=== PATIENT | female | born 1960 | race African-American/Black ===

== ENCOUNTER 2018-02-23 22:04 | Emergency (ER) | payer MEDICAID, OTHER ==
[~2018-02-23] VITALS: Ht 162.6 cm; Wt 67.0 kg
[~2018-02-23 22:04] MED LIST: AMLO10TA4 PO; AMLO10TA80 PO; FURO20TA4 PO
[2018-02-23] MEDS ORDERED: KETOROLAC 60MG/2ML VIAL IM ONE (23:45)
[2018-02-23] MEDS ORDERED: LIDOCAINE 5% PATCH TOP SCH (23:45)
[2018-02-24 00:30] VITALS: BP 144/86
== END 2018-02-24 00:55 | disposition home or self-care (01) ==
LOC: ER 22:04
DX: M62.838 Other muscle spasm (principal); I10 Essential (primary) hypertension; F17.200 Nicotine dependence, unspecified, uncomplicated; Z88.8 Allergy status to other drugs, medicaments and biological substances
CPT/HCPCS: 93005; 99283

== ENCOUNTER 2024-08-06 13:43 | Emergency (ER) | payer MEDICAID, OTHER ==
[~2024-08-06] VITALS: Ht 162.6 cm; Wt 68.0 kg
[2024-08-06 13:47] VITALS: BP 203/102; TEMP 98.8; O2SAT 100
[2024-08-06 14:02] VITALS: PULSE 103; RESP 18; O2SAT 97
[2024-08-06 15:48] LABS: BASOPHILS % 0.4 % (0.0-2.0); EOSINOPHILS % 0.5 % (0.0-5.0); HEMATOCRIT. 41.2 % (36.0-48.0); HEMOGLOBIN. 13.9 g/dL (12.0-16.0); LYMPHOCYTES % 19.6 % (20.0-50.0); MEAN CORPUSCULAR HGB CONC 33.7 g/dL (31.0-37.0); MEAN CORPUSCULAR VOLUME 88.9 fL (81.0-99.0); MEAN PLATELET VOLUME 7.8 fl (7.4-10.4); MONOCYTES % 4.6 % (2.0-8.0); NEUTROPHILS % 74.9 % (40.0-76.0); PLATELET 397 x1000/uL (130-400); RED BLOOD CELL COUNT 4.64 mill/uL (4.2-5.4); WHITE BLOOD COUNT 12.7 x1000/uL (4.5-11.0)
[2024-08-06 15:56] LABS: CHLORIDE 106 mEq/L (98-107); POTASSIUM 4.1 mEq/L (3.5-5.1); SODIUM 141 mEq/L (136-145)
[2024-08-06 15:57] LABS: CARBON DIOXIDE 29 mEq/L (21-32)
[2024-08-06 15:58] LABS: CALCIUM 9.6 mg/dL (8.7-10.4)
[2024-08-06 16:02] LABS: CREATININE 0.8 mg/dL (0.6-1.0); GLUCOSE 94 mg/dL (70-105); UREA NITROGEN BLOOD 13 mg/dL (9-23)
== END 2024-08-06 18:35 | disposition left against medical advice (07) ==
LOC: ER 13:46
DX: I10 Essential (primary) hypertension (principal); Z53.21 Procedure and treatment not carried out due to patient leaving prior to being seen by health care provider
CPT/HCPCS: 36415; 80048; 85025